=== PATIENT | male | born 1970 | race Caucasian/White ===

== ENCOUNTER 2017-11-05 10:48 | Emergency (ER) | payer OTHER ==
[2017-11-05] MEDS ORDERED: VENL150C61 PO (11:01)
[2017-11-05] MEDS ORDERED: HYDR-4228 PO (11:01)
[2017-11-05] MEDS ORDERED: BUPR-472 PO (11:01)
[2017-11-05] MEDS ORDERED: FLU44R INH (11:14)
[2017-11-05] MEDS ORDERED: ALBU8.5H IH (11:14)
[2017-11-05] MEDS ORDERED: GABA-549 PO (11:14)
[2017-11-05] MEDS ORDERED: NAPR-1043 PO (11:14)
[2017-11-05] MEDS ORDERED: MONT10TA PO (11:14)
[2017-11-05] MEDS ORDERED: TELM1TAB19 PO (11:14)
[2017-11-05] MEDS ORDERED: HYDROmorphone* 1 MG/ML 1 MG/ML ML IM ONE (11:20)
[2017-11-05] MEDS ORDERED: fentaNYL CITR 100 MCG/2 ML AMP IM ONE (11:25)
--- NOTE | 2017-11-05 11:42 | ER Report ---
History and Physical Time Seen By MD: 10:30 Hx. of Stated Complaint: PATIENT REPORTS A PAINFUL LUMP ON HIS TAILBONE THAT STARTED A RASH. HE BEEN DRIVING FOR 10 DAYS FROM [employer]. HPI/ROS CHIEF COMPLAINT: Gluteal pain HISTORY OF PRESENT ILLNESS: Patient is a 47-year-old male comes emergency Department today with some redness swelling pain and tenderness to his coccyx area on his left gluteal area greater than right. Patient has driven a long distance history of MRSA in the past is painful to the touch slightly warm patient denies any trauma to the area no additional complaints noted REVIEW OF SYSTEMS: Respiratory: No cough, no dyspnea. Cardiovascular: No chest pain, no palpitations. Gastrointestinal: No vomiting, no abdominal pain. Musculoskeletal: No back pain. Skin early abscess Remainder of the 14 system rev: Yes Allergies: Coded Allergies: Penicillins (Verified Allergy, Unknown, 11/05/17) Home Meds Reported Medications Naproxen Sodium (ALEVE) 220 Mg Tablet, 440 MG PO TID, TAB 11/05/17 Albuterol Sulfate 90 Mcg/Act (PROAIR HFA 90 MCG/ACT) 8.5 Gm Hfa.aer.ad, 1-2 PUFF IH 3-4XD, INHALER 11/05/17 Fluticasone Prop 44 Mcg (FLOVENT HFA 44 MCG) 44 Mcg Inha, 44 MCG INH BID, INH 11/05/17 Montelukast Sodium (SINGULAIR) 10 Mg Tablet, 1 TAB PO QDAY, TAB 11/05/17 Gabapentin (GABAPENTIN) 300 Mg Capsule, 300 MG PO TID, CAPSULE 11/05/17 Telmisartan/Hydrochlorothiazid (MICARDIS HCT 40-12.5 MG TABLET) 1 Each Tablet, 1 EACH PO QDAY 11/05/17 Hydroxyzine Hcl (HYDROXYZINE HCL) 50 Mg Tablet, 50 MG PO PRN 11/05/17 Bupropion Hcl (WELLBUTRIN XL) 150 Mg Tab.er.24h, 150 MG PO QDAY, TAB 11/05/17 Venlafaxine Hcl (EFFEXOR XR) 150 Mg Cap.er.24h, 150 MG PO QDAY 11/05/17 Reviewed Nurses Notes: Yes Old Medical Records Reviewed: Yes Constitutional Vital Sign - Last 24 Hours 11/05/17 10:51 Temp 98.0 Pulse 100 Resp 20 B/P (MAP) 142/97 Pulse Ox 91 O2 Delivery Room Air Physical Exam General appearance: Alert no distress. Respiratory: Chest is non tender, lungs are clear to auscultation. Cardiac: Regular rate and rhythm [ ] Skin gluteal examination shows a red warm erythematous 4 x 6 cm mildly indurated with some areas of fluctuance consistent with either pilonidal or probable abscess tender to palpation DIFFERENTIAL DIAGNOSIS: After history and physical exam differential diagnosis was considered for abscess versus pilonidal cyst Medical Decision Making ED Course/Re-evaluation ED Course ED clinical course a 47 show male presents emergency Department with a trixie- sacral abscess not a pilonidal Procedural note patient had a milligram of Dilaudid preprocedurally about 4 mL of IM lidocaine a single incision with an 11 blade placed suction utilize express purulent material iodoform packing quarter-inch was placed with sterile gauze patient tolerated well Patient be discharged with by mouth antibiotics by mouth pain medication and primary care follow-up diagnosis abscess Decision to Disposition Date: Nov 05, 2017 Decision to Disposition Time: 11:58 Depart Departure Latest Vital Signs Vital Signs Date Time Temp Pulse Resp B/P (MAP) Pulse Ox O2 Delivery O2 Flow Rate FiO2 11/05/17 10:51 98.0 100 20 142/97 91 Room Air Impression: Primary Impression: Abscess Condition: Improved Disposition: HOME OR SELF-CARE Referrals: CHARLEY THOMAS MD 5 Days New Scripts Hydrocodone Bit/Acetaminophen (NORCO 5-325 TABLET) 1 Each Tablet 1 EACH PO 2-3XD for 10 Days, #20 TAB Prov: IRAJ MEYER MD 11/05/17 Sulfamethoxazole/Trimet 800-160 Mg Tab (BACTRIM DS TABLET) 1 Each Tablet 1 TAB PO Q12H, #14 MG 0 Refills TAKE ONE TABLET BY MOUTH EVERY TWELVE HOURS Prov: IRAJ MEYER MD 11/05/17 Patient Instructions: Abscess (ED) IRAJ MEYER MD Nov 05, 2017 11:42
[2017-11-05] MEDS ORDERED: HYDR-4309 PO (12:01)
[2017-11-05] MEDS ORDERED: SULF-198 PO (12:01)
[2017-11-05 12:07] VITALS: BP 137/92
[2017-11-07] MEDS ORDERED: HYDR-4309 PO (14:45)
== END 2017-11-05 12:11 | disposition home or self-care (01) ==
LOC: ER 11:00
DX: L02.31 Cutaneous abscess of buttock (principal)
CPT/HCPCS: 10060; 96372; 99283; J1170; 46050

== ENCOUNTER → 2018-05-21 | Outpatient (CLI) | payer OTHER ==
[~2018-05-21] MED LIST: ALBU8.5H IH; ASPI-1471 PO; BUPR-472 PO; BUPR300T56 PO; CLON-333 PO; CPAP MC; CYCL10TA29 PO; FLU44R INH; GABA-549 PO; HYDR-4228 PO; HYDR-653 PO; LIDO700A19 ASDIRECTED; LOSA-51 PO; MONT10TA PO; NAPR-1043 PO; NAPR-417 PO; SULF-198 PO; TELM1TAB19 PO; VENL150C61 PO; VENL225T5 PO
== END ==
LOC: LAB 15:48
PROVIDERS: ATTEND Emergency Medicine
DX: I10 Essential (primary) hypertension (principal)
CPT/HCPCS: 36415; 82310; 82374; 82435; 82565; 82947; 84132; 84295; 84520

== ENCOUNTER 2018-11-16 19:54 | Emergency (ER) | payer OTHER ==
[~2018-11-16 19:54] MED LIST changes: +GABA-533 PO
[2018-11-16 20:08] VITALS: BP 145/99
[2018-11-16] MEDS ORDERED: LOSA-32 PO (20:14)
[2018-11-16] MEDS ORDERED: SERT-173 PO (20:14)
[2018-11-16] MEDS ORDERED: BUPR-474 PO (20:14)
[2018-11-16] MEDS ORDERED: FLUORESCEIN SOD 1 MG 1 EA STRP OD ONE (20:40)
[2018-11-16] MEDS ORDERED: oxyCODON/ACET (*)5/325MG (CII) 1 TAB TAB PO ONE (20:40)
[2018-11-16] MEDS ORDERED: PROPARACAINE 0.5% OP 15ML BTL OD ONE (20:40)
[2018-11-16] MEDS ORDERED: OXYC-865 PO (21:34)
--- NOTE | 2018-11-16 21:34 | ER Report ---
History and Physical Time Seen By MD: 20:40 Hx. of Stated Complaint: RIGHT EYE REDNESS AND PAIN SINCE FRIDAY. HAS BEEN ON DOXYCYCLINE AND STEROID DROPS SINCE FRIDAY WITH NO IMPROVEMENT. HAS HAD TO HAVE TEAR DUCT SURGERY BUT THEY HAVE ONLY DONE THE LEFT EYE SO FAR HPI/ROS CHIEF COMPLAINT: Right eye pain HISTORY OF PRESENT ILLNESS: Patient presents complaining of a 5 day history of worsening eye pain and redness with increased tearing and some mild blurry vision in the right eye. 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 The patient was seen at an urgent care 3 days ago and was given tobramycin eyedrops as well as oral doxycycline. He is noted no improvement but also had no worsening until today when the pain became much more severe. Pain is sharp, radiates up into the forehead as well as down into the face. No photophobia. No nausea or vomiting. There is positive eye redness. He denies double vision. He denies headache or fevers. He is taking naproxen WITHOUT RELIEF. REVIEW OF SYSTEMS: Gen.: No fevers, no appetite change Eyes: Negative except history of present illness Muscular skeletal: Negative myalgias. Gastrointestinal: No vomiting, no nausea HEENT: No rhinorrhea, nosebleeds, or sore throat Remainder of the 14 system rev: No Allergies: Coded Allergies: Penicillins (Verified Allergy, Unknown, 11/16/18) Home Meds Active Scripts Oxycodone Hcl/Acetaminophen (PERCOCET 5-325 MG TABLET) 1 Each Tablet, 2 EACH PO Q6H PRN for PAIN for 3 Days, #12 TAB 0 Refills Prov:THALIA LANZA DO 11/16/18 Gabapentin (GABAPENTIN) 600 Mg Tablet, 600 MG PO TID, #270 TAB 3 Refills Prov:CARLOS MANUEL DEE MD 08/04/18 Reported Medications Bupropion Hcl (WELLBUTRIN XL) 300 Mg Tab.er.24h, 450 MG PO QDAY, TAB 11/16/18 Sertraline Hcl (ZOLOFT) 100 Mg Tablet, 2 TAB PO QDAY, TAB 11/16/18 Losartan/Hydrochlorothiazide (HYZAAR 50-12.5 TABLET) 1 Each Tablet, 1 EACH PO QDAY 11/16/18 Montelukast Sodium (SINGULAIR) 10 Mg Tablet, 1 TAB PO QDAY, TAB 11/05/17 Discontinued Reported Medications [Cpap] (CPAP HOME) No Conflict Check, 1 EACH QHS 03/17/18 Cyclobenzaprine Hcl (CYCLOBENZAPRINE HCL) 10 Mg Tablet, 10 MG PO PRN, #9 TAB 03/17/18 Naproxen Sodium (Naproxen Sodium ER) 500 Mg Tbmp.24hr, 500 MG PO PRN 03/17/18 Albuterol Sulfate 90 Mcg/Act (PROAIR HFA 90 MCG/ACT) 8.5 Gm Hfa.aer.ad, 1-2 PUFF IH PRN, INHALER 11/05/17 Fluticasone Prop 44 Mcg (FLOVENT HFA 44 MCG) 44 Mcg Inha, 2 PUFF INH BID, INH 11/05/17 Discontinued Scripts Lidocaine (Lidocaine) 5 % Adh..patch, 1 PATCH ASDIRECTED PRN, #90 PATCH 3 Refills Prov:CARLOS MANUEL DEE MD 08/21/18 Clonazepam (CLONAZEPAM) 1 Mg Tablet, 0.5-1 TAB PO QDAY, #30 TAB 1 Refill Prov:CARLOS MANUEL DEE MD 05/21/18 Losartan/Hydrochlorothiazide (LOSARTAN-HCTZ 50-12.5 MG TAB) 1 Each Tablet, 1 EACH PO QDAY, #90 TAB 3 Refills Prov:CARLOS MANUEL DEE MD 03/17/18 Bupropion Hcl (BUPROPION XL) 300 Mg Tab.er.24h, 300 MG PO QDAY, #90 TAB 3 Refills Prov:CARLOS MANUEL DEE MD 03/17/18 Venlafaxine Hcl (VENLAFAXINE HCL ER) 225 Mg Tab.er.24, 225 MG PO QDAY, #90 TAB 3 Refills Prov:CARLOS MANUEL DEE MD 03/17/18 Hydroxyzine Hcl (HYDROXYZINE HCL) 50 Mg Tablet, 50 MG PO PRN for 90 Days, #100 TAB 3 Refills Prov:CARLOS MANUEL DEE MD 03/17/18 Past Medical/Surgical History PTSD, back pain, spinal surgery Reviewed Nurses Notes: Yes Smoking Status: Former Smoker Exposure to Second Hand Smoke?: Yes (in ) Hx Substance Use Disorder: No Hx Alcohol Use: No Constitutional Vital Sign - Last 24 Hours 11/16/18 20:08 Temp 98.7 Pulse 91 Resp 20 B/P (MAP) 145/99 Pulse Ox 97 O2 Delivery Room Air Physical Exam General Appearance: [The patient is alert, has no immediate need for airway protection and no current signs of toxicity.] Patient is in distress Eyes: Pupils equal and round, Bilateral conjunctival injection, right eye is severely can injected, there is perioral numbness., No photophobia, no pain with extraocular movements, there is only trace swelling at the medial canthus and on the upper eyelid. Fluorescein staining does not show any foreign bodies and no uptake in the pupil. There is no hypopyon or hyphema. Pressures in the right eye is 14 with the Icare device. See nursing as her visual acuity Respiratory: No respiratory distress, normal respiratory rate HEENT: No rhinorrhea, no nasal polyps noted. No stridor, no drooling, no facial asymmetry Cardiac: regular rate and rhythm [ ] Neck:] Neck is supple and non tender. Skin: No rashes or lesions. DIFFERENTIAL DIAGNOSIS: After history and physical exam differential diagnosis was considered for Dacrocystitis versus nerve entrapment versus scleritis versus episcleritis versus foreign body versus glaucoma Medical Decision Making ED Course/Re-evaluation ED Course Patient given proparacaine drops and 2 Percocet with moderate relief of pain. His workup here for acute ocular emergency is overall reassuring. I discussed case with , on-call for ophthalmology for [facility] in [place] who stated he would be happy to see the patient tomorrow in clinic. Patient is given a brief prescription for Percocet for home for pain. Encouraged to continue take naproxen. He is also given the number to Dr. Gallegos from ophthalmology and laterally and encouraged, number 1st but should he not be able to get in to be seen tomorrow he can be seen in [place] for this complaint. Re-evaluation Patient feeling significantly improved after pain medications although still having symptoms. Decision to Disposition Date: Nov 16, 2018 Decision to Disposition Time: 21:30 Depart Departure Latest Vital Signs Vital Signs Date Time Temp Pulse Resp B/P (MAP) Pulse Ox O2 Delivery O2 Flow Rate FiO2 11/16/18 20:08 98.7 91 20 145/99 97 Room Air Impression: Primary Impression: Dacrocystitis Additional Impression: Eye redness Condition: Improved Disposition: HOME OR SELF-CARE Referrals: MARK HASTINGS MD New Scripts Oxycodone Hcl/Acetaminophen (PERCOCET 5-325 MG TABLET) 1 Each Tablet 2 EACH PO Q6H PRN for PAIN for 3 Days, #12 TAB 0 Refills Prov: THALIA LANZA DO 11/16/18 Departure Forms: ER Transition Record, Medications Reconciliation, Patient Portal Information Patient Instructions: Eye Pain (ED) Additional Instructions: Follow-up with the electrical mechanical technician information provided above. If he cannot get in to see neurologist here in [place] then please call [phone] seat involved in [place] with the electrical mechanical technician there. If you have to guide for cause to be seen, make sure he emphasize that the ER physician spoke with Dr. Robles and he stated he should be evaluated urgently for an eye condition. Problem Qualifiers Primary Impression: Dacrocystitis Laterality: right Qualified Codes: H04.301 - Unspecified dacryocystitis of right lacrimal passage THALIA LANZA DO Nov 16, 2018 21:34
[2018-11-18] MEDS ORDERED: MIRT-1 PO (15:49)
[2018-11-18] MEDS ORDERED: MONT10TA PO (15:49)
[2018-11-18] MEDS ORDERED: CLIN300C99 PO (15:49)
[2018-11-18] MEDS ORDERED: TOBR5DRO43 OP (15:49)
== END 2018-11-16 21:42 | disposition home or self-care (01) ==
LOC: ER 20:27
DX: H04.301 Unspecified dacryocystitis of right lacrimal passage (principal)
CPT/HCPCS: 99283